=== PATIENT | male | born 1990 | race Two or more races ===

== ENCOUNTER 2017-04-01 09:29 | Inpatient (IN) | payer MEDICAID ==
[~2017-04-01] VITALS: Ht 175.3 cm; Wt 84.1 kg
[2017-04-01 12:14] LABS: BASOPHIL % 0.2 % (0-2); PLATELET COUNT 236 x10^3mcL (130-400)
[2017-04-01 12:21] LABS: microscopic required? YES; urine erythrocyte TRACE (NEGATIVE)
[2017-04-01 12:21] LABS: CARBON DIOXIDE 29.2 mmol/L (21-32); CHLORIDE SERUM 104 mmol/L (98-107); CREATININE SERUM 0.8 mg/dL (0.7-1.3); GFR1 > 60 mL/min; GLUCOSE SERUM 103 mg/dL (74-106); SODIUM SERUM 140 mmol/L (136-145)
[2017-04-01 12:25] LABS: ALBUMIN 3.9 g/dL (3.4-5.0); ALKALINE PHOSPHATASE 64 U/L (46-116); ALT/SGPT 29 U/L (16-63); AMYLASE 65 U/L (25-115); AST/SGOT 20 U/L (15-37); BILIRUBIN TOTAL 1.2 mg/dL (0.20-1.00); LIPASE 124 IU/L (73-393); TOTAL PROTEIN, SERUM 7.5 g/dL (6.4-8.2)
[2017-04-01 15:08] LABS: T3 TOTAL 1.11 ng/mL
[2017-04-01 15:12] LABS: FREE T4 0.87 ng/dL (0.76-1.46); FREE THYROXINE INDEX 2.8 ug/dL (1.4-4.5)
[2017-04-01 15:13] LABS: AMPHETAMINE QUAL UR NONE DETECTED (NEG <=1000)
[2017-04-01 15:19] VITALS: BP 154/87
[2017-04-01 17:16] LABS: MAGNESIUM 2.2 mg/dL (1.8-2.4); PHOSPHOROUS 2.1 mg/dL (2.5-4.9)
[2017-04-01 17:17] LABS: CHOLESTEROL/HDL RATIO 1.8
[2017-04-01 20:26] VITALS: BP 121/75; BP 146/84
[2017-04-02 05:29] VITALS: BP 137/84
[2017-04-02 07:00] LABS: BASOPHIL % 0.2 % (0-2); PLATELET COUNT 199 x10^3mcL (130-400); RED CELL DISTRIBUTION WIDTH 13.1 % (11.5-14.5)
[2017-04-02 07:11] LABS: MAGNESIUM 1.9 mg/dL (1.8-2.4); PHOSPHOROUS 2.4 mg/dL (2.5-4.9)
[2017-04-02 07:28] LABS: ALBUMIN 3.4 g/dL (3.4-5.0); ALKALINE PHOSPHATASE 37 U/L (46-116); ALT/SGPT 24 U/L (16-63); AST/SGOT 20 U/L (15-37); BILIRUBIN TOTAL 1.69 mg/dL (0.20-1.00); CALCIUM 8.4 mg/dL (8.5-10.1); CARBON DIOXIDE 27.8 mmol/L (21-32); CHLORIDE SERUM 107 mmol/L (98-107); CREATININE SERUM 0.9 mg/dL (0.7-1.3); GFR1 > 60 mL/min; GLUCOSE SERUM 104 mg/dL (74-106); SODIUM SERUM 142 mmol/L (136-145); TOTAL PROTEIN, SERUM 6.9 g/dL (6.4-8.2)
[2017-04-02 09:14] VITALS: BP 128/84
[2017-04-02 13:35] VITALS: BP 132/80
[2017-04-02 17:31] VITALS: BP 142/95
[2017-04-02 20:33] VITALS: BP 130/87
[2017-04-03 05:11] VITALS: BP 113/69
[2017-04-03 07:15] LABS: BASOPHIL % 0.4 % (0-2); PLATELET COUNT 205 x10^3mcL (130-400); RED CELL DISTRIBUTION WIDTH 13.2 % (11.5-14.5)
[2017-04-03 07:19] LABS: CALCIUM 8.7 mg/dL (8.5-10.1); CARBON DIOXIDE 31.4 mmol/L (21-32); CHLORIDE SERUM 107 mmol/L (98-107); CREATININE SERUM 0.8 mg/dL (0.7-1.3); GFR1 > 60 mL/min; GLUCOSE SERUM 91 mg/dL (74-106); MAGNESIUM 2.1 mg/dL (1.8-2.4); PHOSPHOROUS 3.2 mg/dL (2.5-4.9); POTASSIUM SERUM 3.7 mmol/L (3.5-5.1); SODIUM SERUM 143 mmol/L (136-145)
[2017-04-03 09:34] VITALS: BP 125/79
[2017-04-03 16:55] VITALS: BP 120/70
[2017-04-03 20:50] VITALS: BP 125/68
[2017-04-04 05:09] VITALS: BP 124/66
[2017-04-04 06:44] LABS: CALCIUM 8.6 mg/dL (8.5-10.1); CARBON DIOXIDE 30.2 mmol/L (21-32); CHLORIDE SERUM 106 mmol/L (98-107); CREATININE SERUM 0.9 mg/dL (0.7-1.3); GFR1 > 60 mL/min; GLUCOSE SERUM 96 mg/dL (74-106); MAGNESIUM 2.1 mg/dL (1.8-2.4); PHOSPHOROUS 3.5 mg/dL (2.5-4.9); POTASSIUM SERUM 3.8 mmol/L (3.5-5.1); SODIUM SERUM 143 mmol/L (136-145)
[2017-04-04 07:01] LABS: BASOPHIL % 0.5 % (0-2); PLATELET COUNT 223 x10^3mcL (130-400); RED CELL DISTRIBUTION WIDTH 13.4 % (11.5-14.5)
[2017-04-04 09:05] VITALS: Ht 175.3 cm; Wt 84.1 kg
[2017-04-04 11:18] VITALS: BP 139/90
[2017-04-04 16:44] VITALS: BP 110/65
[2017-04-04 21:24] VITALS: BP 120/75
[2017-04-05 04:49] VITALS: BP 122/68
[2017-04-05 06:07] LABS: BASOPHIL % 0.2 % (0-2); PLATELET COUNT 225 x10^3mcL (130-400)
[2017-04-05 06:10] LABS: CALCIUM 8.8 mg/dL (8.5-10.1); CARBON DIOXIDE 29.8 mmol/L (21-32); CHLORIDE SERUM 105 mmol/L (98-107); CREATININE SERUM 0.9 mg/dL (0.7-1.3); GFR1 > 60 mL/min; GLUCOSE SERUM 100 mg/dL (74-106); POTASSIUM SERUM 3.6 mmol/L (3.5-5.1); SODIUM SERUM 141 mmol/L (136-145)
[2017-04-05 09:06] VITALS: BP 144/75
[2017-04-05 13:05] VITALS: BP 143/88
[2017-04-05] MEDS ORDERED: ZES10 PO (13:58)
[2017-04-05] MEDS ORDERED: NORCO1 TA2 PO (13:59)
[2017-04-05 14:05] VITALS: BP 143/88
== END 2017-04-05 14:36 | disposition home or self-care (01) | DRG 263 ==
LOC: ED 09:29 → MU 14:00 → DU 14:00 → MU 04-02 15:42
PROVIDERS: Specialist; Student in an Organized Health Care Education/Training Program; Surgery; ADMIT Family Medicine
PROC: BF10YZZ Fluoroscopy of Bile Ducts using Other Contrast (ICD-10-PCS; 2017-04-04)
PROC: 0FT44ZZ Resection of Gallbladder, Percutaneous Endoscopic Approach (ICD-10-PCS; principal; 2017-04-04 08:30)
DX: K80.20 Calculus of gallbladder without cholecystitis without obstruction (principal); E83.39 Other disorders of phosphorus metabolism; I10 Essential (primary) hypertension; E83.51 Hypocalcemia; R31.9 Hematuria, unspecified; E05.80 Other thyrotoxicosis without thyrotoxic crisis or storm; F14.10 Cocaine abuse, uncomplicated; F12.10 Cannabis abuse, uncomplicated; Z68.27 Body mass index [BMI] 27.0-27.9, adult
CPT/HCPCS: 83880; 84439; 94150; C1758; J0696; J1644; J1885; J2250; J3010; J3490; J7030; Q0092; Q9967